=== PATIENT | male | born 1950 | race Caucasian/White ===

== ENCOUNTER 2016-09-28 14:13 | Emergency (ER) ==
[2016-09-28 14:25] VITALS: BP 132/85; TEMP 97.5; BMI 27.2
[2016-09-28] MEDS ORDERED: BACTRIM DS 800/160 MG PO STA (15:15)
--- NOTE | 2016-09-28 15:30 | ED.PDOC ---
General ED Provider: Dr. SILVER WRIGHT Chief Complaint: Toe Pain/Injury Stated Complaint: Left 5 th toe , red swollen, got hurt couple days ago, skin got scraped. no it is red and swollen, i am going out of town. Time Seen by Physician: 15:28 Mode of Arrival: Walk-In Information Source: Patient Primary Care Provider: JEOVANNY MOSS Nursing and Triage Documentation Reviewed and Agree: Yes Skin Complaint Exam - Skin/Soft Tissue Complaint/Exam Symptoms Are: Still present Timing: Constant Initial Severity: Mild Current Severity: Mild Character: Reports: Redness, Swelling. Denies: Raised, Painful Aggravating: Reports: Touch Alleviating: Reports: None Associated Signs and Symptoms: Reports: Tenderness. Denies: Fever, Chills, Itching, Drainage, Bruising, Red streaks, Joint swelling Related Surgical History: Reports: None Recent Exposure to Others w/Similar Symptoms: No Skin Findings: Present: Erythema Differential Diagnoses: Cellulitis Review of Systems - Review Of Systems Constitutional: Reports: No symptoms Eyes: Reports: No symptoms Ears, Nose, Mouth, Throat: Reports: No symptoms Respiratory: Reports: No symptoms Cardiac: Reports: No symptoms GI: Reports: No symptoms : Reports: No symptoms Musculoskeletal: Reports: No symptoms Skin: Reports: No symptoms Neurological: Reports: No symptoms Endocrine: Reports: No symptoms Hematologic/Lymphatic: Reports: No symptoms All Other Systems: Reviewed and Negative Past Medical History - Past Medical History Previously Healthy: Yes Endocrine: Reports: Dyslipidemia Cardiovascular: Reports: Hypertension Respiratory: Reports: None Hematological: Reports: None Gastrointestinal: Reports: None Genitourinary: Reports: Other (BPH) Neuro/Psych: Reports: Anxiety Musculoskeletal: Reports: Joint Pain Cancer: Reports: None - Surgical History General Surgical History: Reports: Other (thoracotomy for thymus mass) - Family History Family History: Reports: None - Social History Smoking Status: Never smoker Hx Substance Use: No Alcohol Screening: None - Immunizations Tetanus Shot up to Date: No Physical Exam - Physical Exam Appearance: Well-appearing, No pain distress, Well-nourished Eyes: LEIGHANN, EOMI, Conjunctiva clear ENT: Ears normal, Nose normal, Oropharynx normal Respiratory: Airway patent, Breath sounds clear, Breath sounds equal, Respirations nonlabored Cardiovascular: RRR, Pulses normal, No rub, No murmur GI/: Soft, Nontender, No masses, Bowel sounds normal, No Organomegaly Musculoskeletal: Normal strength, ROM intact, No edema, No calf tenderness Skin: Warm (left 5 th toe, there is open area 0.5 cm, red araound it, ), Dry, Normal color Neurological: Sensation intact, Motor intact, Reflexes intact, Cranial nerves intact, Alert, Oriented Psychiatric: Affect appropriate, Mood appropriate Critical Care Note - Critical Care Note Total Time (mins): 0 Course - Course Orders, Labs, Meds: Orders Category Date Time Status Sulfamethoxazole/Trimethoprim [Bactrim Ds 800/160 mg] MEDS 09/28/16 15:15 Discontinued 1 tab PO ONCE STA Medications Discontinued Medications Generic Name Dose Route Start Last Admin Trade Name Freq PRN Reason Stop Dose Admin Trimethoprim/Sulfamethoxazole 1 tab 09/28/16 15:15 Bactrim Ds 800/160 Mg PO 09/28/16 15:16 ONCE STA Vital Signs: Temp Pulse Resp BP Pulse Ox 09/28/16 14:16 97.5 F L 69 20 132/85 98 Departure - Departure Time of Disposition: 15:37 Disposition: HOME SELF-CARE Discharge Problem: Cellulitis Qualifiers: Site of cellulitis: extremity Site of cellulitis of extremity: lower extremity Laterality: left Qualifier Code: (L03.116) Cellulitis of left lower limb Cellulitis, toe Qualifiers: Laterality: left Qualifier Code: (L03.032) Cellulitis of left toe Discharge Problem: (Ruled Out): Cellulitis of toe of left foot Instructions: Cellulitis (ED) Condition: Stable Pt referred to PMD for follow-up: Yes Additional Instructions: increase hydration Tylenol prn take medications with food Prescriptions: Sulfamethoxazole/Trimethoprim [Bactrim Ds 800/160 mg] 1 tab PO Q12HR #20 tablet Allergies/Adverse Reactions: Allergies No Known Allergies Allergy (Verified 09/28/16 14:22) Home Medications: Ambulatory Orders Aspirin [Aspirin EC] 325 mg PO DAILYWM 12/19/13 Atorvastatin Calcium [Lipitor] 40 mg PO DAILY 12/19/13 Benazepril HCl [Lotensin] 80 mg PO DAILY 12/19/13 Dorzolamide HCl [Trusopt] 1 drop OP DAILY 12/19/13 Latanoprost [Xalatan] 1 drop OP BEDTIME 12/19/13 Tamsulosin HCl [Flomax] 1 PO DAILY 01/01/16 Sulfamethoxazole/Trimethoprim [Bactrim Ds 800/160 mg] 1 tab PO Q12HR #20 tablet 09/28/16 Disposition Discussed With: Patient
== END 2016-09-28 16:00 | disposition home or self-care (01) ==
LOC: ED 14:13
DX: L03.032 Cellulitis of left toe (principal); Z79.899 Other long term (current) drug therapy
CPT/HCPCS: 99283